=== PATIENT | female | born 1980 | race Caucasian/White ===

== ENCOUNTER 2018-04-02 08:48 | Emergency (ER) | payer OTHER ==
[~2018-04-02] VITALS: Ht 149.9 cm; Wt 63.5 kg
[2018-04-02] MEDS ORDERED: SUPER B-COMPL400 MCG (09:07)
[2018-04-02] MEDS ORDERED: PROTONIX20 MG (09:07)
[2018-04-02] MEDS ORDERED: SYNTHROID125 MCG (09:08)
== END 2018-04-02 14:22 | disposition home or self-care (01) ==
LOC: ER 08:48
DX: O26.892 Other specified pregnancy related conditions, second trimester (principal); O23.42 Unspecified infection of urinary tract in pregnancy, second trimester; K52.9 Noninfective gastroenteritis and colitis, unspecified; Z34.02 Encounter for supervision of normal first pregnancy, second trimester

== ENCOUNTER 2018-08-04 17:13 | Inpatient (IN) | payer OTHER ==
[~2018-08-04] VITALS: Ht 149.9 cm; Wt 68.5 kg
[~2018-08-04 17:13] MED LIST: PROTONIX20 MG; SUPER B-COMPL400 MCG; SYNTHROID125 MCG
== END 2018-08-26 17:32 | DRG 807 ==
LOC: OB/GYN 08-21 13:30 → SURG-SUITE 08-23 08:27 → LDR 08-23 08:27 → SURG-SUITE 08-24 16:37
PROVIDERS: ADMIT Obstetrics & Gynecology
PROC: 4A1HXCZ Monitoring of Products of Conception, Cardiac Rate, External Approach (ICD-10-PCS; 2018-08-23)
PROC: 10E0XZZ Delivery of Products of Conception, External Approach (ICD-10-PCS; principal; 2018-08-24)
PROC: 0W8NXZZ Division of Female Perineum, External Approach (ICD-10-PCS; 2018-08-24)
PROC: 3E033VJ Introduction of Other Hormone into Peripheral Vein, Percutaneous Approach (ICD-10-PCS; 2018-08-24)
DX: O24.410 Gestational diabetes mellitus in pregnancy, diet controlled (principal); Z37.0 Single live birth; Z22.330 Carrier of Group B streptococcus; Z3A.40 40 weeks gestation of pregnancy

== ENCOUNTER 2018-08-29 22:00 | Emergency (ER) | payer OTHER ==
[~2018-08-29] VITALS: Ht 149.9 cm; Wt 64.4 kg
[2018-08-29] MEDS ORDERED: PROTONIX20 MG (22:09)
[2018-08-29] MEDS ORDERED: ATABEX DHA 200200 MG (22:10)
[2018-08-30] MEDS ORDERED: LABETALOL HCL100 MG PO (01:31)
== END 2018-08-30 01:55 | disposition home or self-care (01) ==
LOC: ER 22:00
DX: O16.5 Unspecified maternal hypertension, complicating the puerperium (principal)

== ENCOUNTER 2018-08-30 13:31 | Inpatient (IN) | payer OTHER ==
[~2018-08-30] VITALS: Ht 149.9 cm; Wt 64.4 kg
[~2018-08-30 13:31] MED LIST changes: +ATABEX DHA 200200 MG; +LABETALOL HCL100 MG PO
[2018-09-01] MEDS ORDERED: APRESOLINE 10MG10 MG PO (12:10)
== END 2018-09-01 13:35 | disposition home or self-care (01) | DRG 776 ==
LOC: LDR 13:31 → OB/GYN 08-31 18:13
PROVIDERS: ADMIT Obstetrics & Gynecology
DX: O14.95 Unspecified pre-eclampsia, complicating the puerperium (principal)